=== PATIENT | female | born 1960 | race Two or more races ===

== ENCOUNTER → 2017-05-16 | Outpatient (CLI) | payer BC ==
[2015-03-09 12:20] VITALS: BP 141/86
[~2017-05-16] MED LIST: ASPI-482 PO; BENZ100C PO; CHOL10003 PO; CYAN10005 PO; GABA-586 PO; HYDR-2678 PO; HYDR-971 PO; HYDR200T PO; IBUP200T43 PO; LISI-334 PO; NAPR500T PO; NITR0.4T22 SL; PROM118S2 PO
--- NOTE | 2017-05-16 10:06 | RAD ---
DATE: 05/16/2017 EXAM: MAMMO MANUEL SCREENING BILATERAL HISTORY: Routine screening COMPARISON: 02/01/2016 The breast parenchyma is primarily fatty replaced. Breast parenchyma level density A. FINDINGS: 2-D and 3-D tomosynthesis imaging was performed in CC and MLO projections. There is a 3 mm smooth nodule in the medial aspect of the right breast at approximately the 2:00 location. It is best visualized on CC tomogram #[id number]. It was probably present on the 02/01/2016 2-D study, but less clearly defined due to technical differences. No other breast nodularity is seen. Minimal benign type calcification is present on the right. No suspicious microcalcifications have developed. Benign-appearing lymph node type densities are again noted in the left axillary region. IMPRESSION: Small right breast nodule. Sonographic evaluation is suggested. BI-RADS CATEGORY: 0 INCOMPLETE: NEEDS ADDITIONAL IMAGING EVALUATION AND/OR PRIOR MAMMOGRAMS FOR COMPARISON. RECOMMENDED FOLLOW-UP: ADD ADDITIONAL IMAGING PQRS compliance statement: Patient information was entered into a reminder system with a target due date 05/16/2018 for the next mammogram. Mammography is a sensitive method for finding small breast cancers, but it does not detect them all and is not a substitute for careful clinical examination. A negative mammogram does not negate a clinically suspicious finding and should not result in delay in biopsying a clinically suspicious abnormality. "Our facility is accredited by the [employer] Mammography [employer]."
== END | disposition home or self-care (01) ==
LOC: KCIC MAMMO 07:58
PROVIDERS: ATTEND Nurse Practitioner Family
DX: Z12.31 Encounter for screening mammogram for malignant neoplasm of breast (principal); N63 Unspecified lump in breast
CPT/HCPCS: 77063; G0202; 77067

== ENCOUNTER → 2017-05-26 | Outpatient (CLI) | payer BC ==
[2015-03-09 12:20] VITALS: BP 141/86
--- NOTE | 2017-05-26 09:00 | KCIC ---
Right breast ultrasound: Reason for examination: Small parenchymal density in the right breast. Follow-up exam. Comparison is made to mammographic exam dated 05/16/2017 and 02/01/2016. Ultrasound examination was performed with attention to the medial breast. No discrete cystic or solid nodules identified. The parenchymal nodule seen mammographically is probably benign and was probably present on previous examination without definite change. Recommend however reevaluation in 6 months with mammogram to verify stability. IMPRESSION: No focal abnormality evident in the right breast sonographically. Recommend reevaluation with right breast mammogram in 6 months to verify stability of this finding. BI-RADS Category 3: Probably Benign. "Our facility is accredited by the [employer] Mammography [employer]." This patient's information has been entered into a reminder system for the patient to be notified with the results of her examination and a target date for the next mammogram. Electronically signed by: Reba Gonsales MD (05/26/2017 8:57 AM) [id number]
== END | disposition home or self-care (01) ==
LOC: KCIC US 07:53
PROVIDERS: ATTEND Nurse Practitioner Family
DX: R92.8 Other abnormal and inconclusive findings on diagnostic imaging of breast (principal)
CPT/HCPCS: 76641

== ENCOUNTER → 2018-08-06 | Outpatient (CLI) | payer BC ==
[2015-03-09 12:20] VITALS: BP 141/86
[~2018-08-06] MED LIST changes: -HYDR200T PO; +HYDR200T71 PO; -IBUP200T43 PO; +IBUP200T44 PO; +NAPR-683 PO; -NAPR500T PO; -PROM118S2 PO; +PROM118S5 PO
--- NOTE | 2018-08-06 15:22 | KCIC ---
2 views of the right calcaneus without comparison for sharp pain in the right heel for one month. FINDINGS: There is no fracture, dislocation, or acute osseous abnormality identified. A calcaneal bone spur is present as is a calcaneal enthesophyte. No radiopaque foreign bodies are seen. IMPRESSION: 1. No acute osseous abnormality of the calcaneus. A calcaneal bone spur and calcaneal enthesophyte are both present. Electronically signed by: Porfirio Smyth MD (08/06/2018 3:20 PM) [id number]
== END | disposition home or self-care (01) ==
LOC: KCIC 09:15
PROVIDERS: ATTEND Nurse Practitioner Family
DX: M77.31 Calcaneal spur, right foot (principal)
CPT/HCPCS: 73650

== ENCOUNTER → 2018-09-01 | Outpatient (CLI) | payer BC ==
[2015-03-09 12:20] VITALS: BP 141/86
[~2018-09-01] MED LIST changes: +HYDR-3164 PO; -HYDR-971 PO
== END | disposition home or self-care (01) ==
LOC: PMGWOUND 11:35
PROVIDERS: ATTEND Emergency Medicine Undersea and Hyperbaric Medicine
DX: S30.860A Insect bite (nonvenomous) of lower back and pelvis, initial encounter (principal); L02.31 Cutaneous abscess of buttock; I25.10 Atherosclerotic heart disease of native coronary artery without angina pectoris; Z86.73 Personal history of transient ischemic attack (TIA), and cerebral infarction without residual deficits; W57.XXXA Bitten or stung by nonvenomous insect and other nonvenomous arthropods, initial encounter; Y93.89 Activity, other specified; Y92.89 Other specified places as the place of occurrence of the external cause; Y99.8 Other external cause status
CPT/HCPCS: 10060

== ENCOUNTER → 2018-09-09 | Outpatient (CLI) | payer BC ==
[2015-03-09 12:20] VITALS: BP 141/86
== END | disposition home or self-care (01) ==
LOC: PMGWOUND 09:06
PROVIDERS: ATTEND Preventive Medicine Undersea and Hyperbaric Medicine
DX: L02.31 Cutaneous abscess of buttock (principal); I25.10 Atherosclerotic heart disease of native coronary artery without angina pectoris; Z86.73 Personal history of transient ischemic attack (TIA), and cerebral infarction without residual deficits
CPT/HCPCS: 99213

== ENCOUNTER → 2018-09-11 | Outpatient (CLI) | payer BC ==
[2015-03-09 12:20] VITALS: BP 141/86
== END | disposition home or self-care (01) ==
LOC: PMGWOUND 08:09
PROVIDERS: ATTEND Preventive Medicine Undersea and Hyperbaric Medicine
DX: S30.860D Insect bite (nonvenomous) of lower back and pelvis, subsequent encounter (principal); L02.31 Cutaneous abscess of buttock; I25.10 Atherosclerotic heart disease of native coronary artery without angina pectoris; Z86.73 Personal history of transient ischemic attack (TIA), and cerebral infarction without residual deficits; W57.XXXD Bitten or stung by nonvenomous insect and other nonvenomous arthropods, subsequent encounter
CPT/HCPCS: 99213

== ENCOUNTER → 2018-09-15 | Outpatient (CLI) | payer BC ==
[2015-03-09 12:20] VITALS: BP 141/86
[~2018-09-15] MED LIST changes: -GABA-586 PO; +GABA300C18 PO
== END | disposition home or self-care (01) ==
LOC: PMGWOUND 08:10
PROVIDERS: ATTEND Emergency Medicine Undersea and Hyperbaric Medicine
DX: S30.860D Insect bite (nonvenomous) of lower back and pelvis, subsequent encounter (principal); I25.10 Atherosclerotic heart disease of native coronary artery without angina pectoris; Z86.73 Personal history of transient ischemic attack (TIA), and cerebral infarction without residual deficits; W57.XXXD Bitten or stung by nonvenomous insect and other nonvenomous arthropods, subsequent encounter
CPT/HCPCS: 99214; G0463

== ENCOUNTER → 2018-09-18 | Outpatient (CLI) | payer BC ==
[2015-03-09 12:20] VITALS: BP 141/86
== END | disposition home or self-care (01) ==
LOC: PMGWOUND 08:10
PROVIDERS: ATTEND Preventive Medicine Undersea and Hyperbaric Medicine
DX: S30.860D Insect bite (nonvenomous) of lower back and pelvis, subsequent encounter (principal); I25.10 Atherosclerotic heart disease of native coronary artery without angina pectoris; Z86.73 Personal history of transient ischemic attack (TIA), and cerebral infarction without residual deficits; W57.XXXD Bitten or stung by nonvenomous insect and other nonvenomous arthropods, subsequent encounter
CPT/HCPCS: 99213

== ENCOUNTER → 2018-09-22 | Outpatient (CLI) | payer BC ==
[2015-03-09 12:20] VITALS: BP 141/86
== END | disposition home or self-care (01) ==
LOC: PMGWOUND 08:04
PROVIDERS: ATTEND Emergency Medicine Undersea and Hyperbaric Medicine
DX: S30.860D Insect bite (nonvenomous) of lower back and pelvis, subsequent encounter (principal); I25.10 Atherosclerotic heart disease of native coronary artery without angina pectoris; Z86.73 Personal history of transient ischemic attack (TIA), and cerebral infarction without residual deficits; W57.XXXD Bitten or stung by nonvenomous insect and other nonvenomous arthropods, subsequent encounter
CPT/HCPCS: 99213

== ENCOUNTER → 2018-09-30 | Outpatient (CLI) | payer BC ==
[2015-03-09 12:20] VITALS: BP 141/86
== END | disposition home or self-care (01) ==
LOC: PMGWOUND 08:07
PROVIDERS: ATTEND Preventive Medicine Undersea and Hyperbaric Medicine
DX: L02.31 Cutaneous abscess of buttock (principal); I25.10 Atherosclerotic heart disease of native coronary artery without angina pectoris; Z86.73 Personal history of transient ischemic attack (TIA), and cerebral infarction without residual deficits; E66.9 Obesity, unspecified; Z68.35 Body mass index [BMI] 35.0-35.9, adult
CPT/HCPCS: 99213

== ENCOUNTER → 2019-01-04 | Outpatient (CLI) | payer BC ==
[2015-03-09 12:20] VITALS: BP 141/86
--- NOTE | 2019-01-04 11:47 | KCIC ---
Bilateral diagnostic digital mammograms with 3-D tomosynthesis: Reason for examination: Follow-up nodular density. Comparison is made to previous study dated 05/16/2017. Bilateral mammograms in CC and oblique projections were obtained with 2-D imaging and 3-D tomosynthesis imaging on a [employer] Inspiration unit and reviewed on the workstation. Interpretation was made with the benefit of CAD. The skin and nipples show no abnormalities. No abnormal axillary lymph nodes are seen. The breast parenchyma is predominantly fatty. (Breast density: Category A.) There are no dominant masses, suspicious calcifications or architectural distortion. Impression: No evidence of malignancy. Recommend routine screening. BI-RAD Category 1: Negative. "Our facility is accredited by the [employer] Mammography [employer]." This patient's information has been entered into a reminder system for the patient to be notified with the results of her examination and a target date for the next mammogram. Electronically signed by: Reba Gonsales MD (01/04/2019 11:44 AM) [id number]
== END | disposition home or self-care (01) ==
LOC: KCIC MAMMO 10:45
PROVIDERS: ATTEND Nurse Practitioner Family
DX: R92.8 Other abnormal and inconclusive findings on diagnostic imaging of breast (principal)
CPT/HCPCS: 77066; G0279; 77062

== ENCOUNTER → 2021-08-06 | Outpatient (CLI) | payer BC ==
[2015-03-09 12:20] VITALS: BP 141/86
[~2021-08-06] MED LIST changes: +CYAN-25 PO; -CYAN10005 PO; -LISI-334 PO; +LISI20TA18 PO
--- NOTE | 2021-08-06 14:43 | KCIC ---
Bilateral digital screening mammograms with 3-D tomosynthesis: Reason for examination: Routine screening. Comparison is made to previous studies dated back to 02/01/2016. Bilateral mammograms in CC and oblique projections were obtained with 2-D imaging and 3-D tomosynthes is imaging on a [employer] Inspiration unit and reviewed on the workstation. Interpretation was made wit h the benefit of CAD. The skin and nipples show no abnormalities. No abnormal axillary lymph nodes are seen. The breast par enchyma shows scattered fatty and fibroglandular density. (Breast density: Category B.) There are no dominant masses, suspicious calcifications or architectural distortion. Impression: No evidence of malignancy. Recommend routine screening. BI-RAD Category 1: Negative. "Our facility is accredited by the [employer] Mammography [employer]." This patient's information has been entered into a reminder system for the patient to be notified wit h the results of her examination and a target date for the next mammogram. Electronically signed by: Reba Gonsales MD (08/06/2021 2:41 PM) [id number]
== END ==
LOC: KCIC MAMMO 11:08
PROVIDERS: ATTEND Nurse Practitioner Family
DX: Z12.31 Encounter for screening mammogram for malignant neoplasm of breast (principal)
CPT/HCPCS: 77063; 77067